=== PATIENT | female | born 1975 | race Two or more races ===

== ENCOUNTER 2018-07-04 07:18 | Day surgery (SDC) | payer OTHER ==
[~2018-07-04 07:18] MED LIST: CLONAZEPAM2 MG PO; DOXEPIN HCL100 MG PO; RESTORIL15 M1 PO; SEROQUEL200 MG PO
== END 2018-07-04 19:25 | disposition home or self-care (01) ==
LOC: CIR.AMB 07:18
DX: K60.1 Chronic anal fissure (principal); K64.8 Other hemorrhoids; K64.4 Residual hemorrhoidal skin tags